=== PATIENT | female | born 1980 | race Caucasian/White ===

== ENCOUNTER 2016-06-24 07:50 | Emergency (ER) | payer OTHER ==
[~2016-06-24] VITALS: Ht 180.3 cm; Wt 69.3 kg
[2016-06-24 08:41] VITALS: BP 140/91
== END 2016-06-24 08:42 | disposition home or self-care (01) ==
LOC: EME 07:50
DX: M67.441 Ganglion, right hand (principal)
CPT/HCPCS: 99281; 99282